=== PATIENT | female | born 1985 | race Caucasian/White ===

== ENCOUNTER 2021-03-29 16:15 | Emergency (ER) | payer MEDICAID, SELFPAY ==
[~2021-03-29] VITALS: Ht 142.2 cm; Wt 65.5 kg
[~2021-03-29 16:15] MED LIST: ACET-8386 PO; CIPR500T4 PO; DOCU-299 PO
[2021-03-29 16:16] VITALS: BP 112/56
[2021-03-29] MEDS ORDERED: KETOROLAC 60 MG/2 ML VIAL IM ONE (17:15)
[2021-03-29] MEDS ORDERED: IBUP-2213 PO (18:14)
[2021-03-29] MEDS ORDERED: CIPR500T4 PO (18:14)
[2021-03-30] MEDS ORDERED: CEPH-588 PO (05:31)
[2021-03-30] MEDS ORDERED: ACET-10509 PO (05:31)
[2021-03-30] MEDS ORDERED: NAPR-54 PO (05:31)
== END 2021-03-29 18:20 | disposition home or self-care (01) ==
LOC: MED 16:15
DX: N39.0 Urinary tract infection, site not specified (principal); Z90.49 Acquired absence of other specified parts of digestive tract; Z79.899 Other long term (current) drug therapy; Z79.2 Long term (current) use of antibiotics; Z79.891 Long term (current) use of opiate analgesic
CPT/HCPCS: 81002; 81025; 96372; 99283; J1885

== ENCOUNTER 2021-03-30 01:35 | Emergency (ER) | payer MEDICAID ==
[~2021-03-30] VITALS: Ht 160 cm; Wt 65.3 kg
[~2021-03-30 01:35] MED LIST changes: +IBUP-2213 PO
[2021-03-30 01:45] VITALS: BP 118/69
--- NOTE | 2021-03-30 02:36 | NUR ---
35 Y/O FEMALE PRESENTED TO ED WITH C/O OF CHILL. PT STATED SHE WAS RECNTLY HERE IN THE ED EARLIER THIS AFTERNOON AND RETURNED DUE TO CHILLS. AAOX4. DENIES PAIN. +FEVER OF 100.6. +HEADACHE. DENIES PMH NKA
[2021-03-30] MEDS ORDERED: ACETAMINOPHEN EXTRA STRENGTH 500 MG TAB PO ONE (02:45)
--- NOTE | 2021-03-30 04:23 | NUR ---
PT AMBULATAED TO BATHROOM.
[2021-03-30 04:33] LABS: BILIRUBIN,URINE NEGATIVE (NEGATIVE); BLOOD, URINE 1+ (NEGATIVE); LEUKOCYTE ESTERASE ,URINE 2+ (NEGATIVE); NITRITE, URINE POSITIVE (NEGATIVE); UGLUCOSE NEGATIVE (NEGATIVE)
[2021-03-30 04:50] LABS: APPEARANCE,URINE HAZY (CLEAR); COLOR,URINE YELLOW (YELLOW)
[2021-03-30 04:55] LABS: RBC,URINE 0-5 /HPF (0-5); WBC,URINE TOO MANY TO COUNT /HPF (0-5)
[2021-03-30] MEDS ORDERED: cefTRIAXone 1,000 MG in LIDOCAINE MPF 1% 2.1 ML IM ONE (05:25)
[2021-03-30] MEDS ORDERED: NAPR-54 PO (05:31)
[2021-03-30] MEDS ORDERED: CEPH-588 PO (05:31)
[2021-03-30] MEDS ORDERED: ACET-10509 PO (05:31)
[2021-03-30] MEDS ORDERED: cefTRIAXone 1,000 MG VIAL ONE ×2 (05:43→05:46)
[2021-03-30] MEDS ORDERED: LIDOCAINE MPF 1% 0 ML ONE (05:44)
[2021-03-30] MEDS ORDERED: LIDOCAINE MPF 1% 5 ML ONE (05:47)
[2021-03-30 05:58] VITALS: BP 116/57
--- NOTE | 2021-03-30 05:58 | NUR ---
Patient discharged with v/s stable. Written and verbal after care instructions given and explained. Patient alert, oriented and verbalized understanding of instructions. Ambulatory with steady gait. All questions addressed prior to discharge. ID band removed. Patient advised to follow up with PMD. Rx of ACETAMINOPHEN, CEPHALEXIN, AND NAPROXEN given. Patient educated on indication of medication including possible reaction and side effects. Opportunity to ask questions provided and answered.
== END 2021-03-30 05:58 | disposition home or self-care (01) ==
LOC: MED 01:35
DX: N39.0 Urinary tract infection, site not specified (principal); R50.9 Fever, unspecified
CPT/HCPCS: 81001; 81025; 87086; 96372; 99283; J0696; J2001

== ENCOUNTER 2021-08-01 20:01 | Emergency (ER) | payer MEDICAID ==
[~2021-08-01] VITALS: Ht 139.7 cm; Wt 58.1 kg
[~2021-08-01 20:01] MED LIST changes: +ACET-10509 PO; +CEPH-588 PO; +NAPR-54 PO
[2021-08-01 20:37] VITALS: BP 155/107
--- NOTE | 2021-08-01 20:44 | NUR ---
TO BR FOR UA THEN TO LOBBY FOLLOWING TRIAGE
--- NOTE | 2021-08-01 21:44 | NUR ---
TO BED 12 FROM LOBBY
--- NOTE | 2021-08-01 22:03 | NUR ---
Dr. Carpenter examining patient.
[2021-08-01] MEDS ORDERED: NITR100C7 PO (22:07)
[2021-08-01] MEDS ORDERED: PHEN-1877 PO (22:07)
--- NOTE | 2021-08-01 22:11 | NUR ---
Patient discharged BY DR. TURNER. Written and verbal after care instructions given and explained. Patient alert, oriented and verbalized understanding of instructions. Ambulatory with steady gait. All questions addressed prior to discharge. ID band removed. Patient advised to follow up with PMD. Rx of MACROBID AND PYRIDIUM given. Patient educated on indication of medication including possible reaction and side effects. Opportunity to ask questions provided and answered.
== END 2021-08-01 22:11 | disposition home or self-care (01) ==
LOC: MED 20:01
DX: N39.0 Urinary tract infection, site not specified (principal); Z79.899 Other long term (current) drug therapy; Z90.49 Acquired absence of other specified parts of digestive tract; Z98.890 Other specified postprocedural states
CPT/HCPCS: 81002; 81025; 99283

== ENCOUNTER 2022-02-14 16:32 | Emergency (ER) | payer MEDICAID ==
[~2022-02-14] VITALS: Ht 154.9 cm; Wt 65.8 kg
[~2022-02-14 16:32] MED LIST changes: +NITR100C7 PO; +PHEN-1877 PO
[2022-02-14 16:47] VITALS: BP 131/80
--- NOTE | 2022-02-14 16:54 | NUR ---
called [place] [facility] dispatch states will make a call for officer to file a report.
--- NOTE | 2022-02-14 17:45 | NUR ---
[facility] WITH PT FOR INTERVIEW AND REPORT
[2022-02-14] MEDS ORDERED: KETOROLAC 30 MG/ML VIAL IM ONE (18:30)
[2022-02-14] MEDS ORDERED: NAPR-1704 PO (19:57)
[2022-02-14] MEDS ORDERED: TRAM50TA3 PO (19:57)
[2022-02-14 20:31] VITALS: BP 131/80
== END 2022-02-14 20:31 | disposition home or self-care (01) ==
LOC: MED 16:32
DX: R10.30 Lower abdominal pain, unspecified (principal); Z79.899 Other long term (current) drug therapy; Y04.2XXA Assault by strike against or bumped into by another person, initial encounter; Y93.89 Activity, other specified; Y92.89 Other specified places as the place of occurrence of the external cause; Y99.8 Other external cause status
CPT/HCPCS: 74022; 81025; 96372; 99283; J1885

== ENCOUNTER 2022-04-17 00:51 | Emergency (ER) | payer MEDICAID ==
[~2022-04-17] VITALS: Ht 134.6 cm; Wt 72.6 kg
[~2022-04-17 00:51] MED LIST changes: -ACET-8386 PO; +ACET-8905 PO; +NAPR-1704 PO; +TRAM50TA3 PO
[2022-04-17 01:01] VITALS: BP 139/89
--- NOTE | 2022-04-17 01:09 | NUR ---
PT TAKEN TO BED 12
--- NOTE | 2022-04-17 01:19 | NUR ---
36YR OLD FEMALE BIB SELF C/O LOWER ABD PAIN / HEAVY PERIOD. PT STATES THIS IS NEW FOR HER. DENIES POSSIBLE PREG. URINE PREG NEG. PT IS A&OX4. SKIN WARM AND DRY. 9/10 SHARP/ACHEY PAIN. DENIES FEVER V/D DENIES SOB OR CP. HOB ELEVATED SIDE RAILS UP X1. BED AT LOWEST POSITION. NKDA DENIES MED HX
[2022-04-17] MEDS ORDERED: KETOROLAC 15 MG/ML VIAL IM ONE (01:30)
--- NOTE | 2022-04-17 01:34 | NUR ---
URINE COLLECTED AND WALKED TO LAB
[2022-04-17 01:49] LABS: BILIRUBIN,URINE NEGATIVE (NEGATIVE); BLOOD, URINE 3+ (NEGATIVE); COLOR,URINE YELLOW (YELLOW); LEUKOCYTE ESTERASE ,URINE NEGATIVE (NEGATIVE); NITRITE, URINE POSITIVE (NEGATIVE); UGLUCOSE NEGATIVE (NEGATIVE)
[2022-04-17 01:51] LABS: HEMOGLOBIN 8.2 g/dL (12.0-16.0); MEAN CORPUSCULAR HEMOGLOBIN 19 pg (27-31); MEAN CORPUSCULAR HGB CONC 30 g/dL (33-37); MEAN CORPUSCULAR VOLUME 63.5 fL (80-94); PLATELET COUNT (AUTO) 347 K/uL (140-450); RED BLOOD CELL COUNT(AUTO) 4.25 MIL/uL (4.20-5.40); WHITE BLOOD COUNT (AUTO) 7.2 K/uL (4.8-10.8)
--- NOTE | 2022-04-17 02:00 | NUR ---
PATIENT MEDICATED PER ORDERS
[2022-04-17 02:04] LABS: APPEARANCE,URINE SLIGHTLY HAZY (CLEAR)
[2022-04-17 02:06] LABS: WBC,URINE 0-5 /HPF (0-5)
[2022-04-17 02:07] LABS: ANION GAP 12.2 (8-16); CARBON DIOXIDE 31.6 mmol/L (21-32); CREATININE 0.7 mg/dL (0.6-1.3); TOTAL BILIRUBIN 0.2 mg/dL (0.0-1.0)
--- NOTE | 2022-04-17 02:10 | NUR ---
PATIENT STATED THAT IT WAS OKAY TO UPDATE SIGNIFICANT OTHER.
--- NOTE | 2022-04-17 02:10 | NUR ---
SPOKE TO SIGNIFICANT OTHER AND UPDATED ON PATIENTS STATUS.
[2022-04-17 02:13] LABS: POTASSIUM 2.8 mmol/L (3.5-5.1)
[2022-04-17] MEDS ORDERED: POTASSIUM CHLORIDE 10 MEQ TABER PO ONE ×2 (02:20)
[2022-04-17 02:25] LABS: EOSINOPHILS % (MANUAL) 2 % (0-4); LYMPHOCYTES % (MANUAL) 61 % (20-46); MONOCYTES % (MANUAL) 5 % (5-12)
--- NOTE | 2022-04-17 02:57 | NUR ---
ADALGISA RICH ASSESSING PATIENT
--- NOTE | 2022-04-17 03:12 | NUR ---
Ultrasound at bedside.
[2022-04-17 04:16] VITALS: BP 139/95
[2022-04-17] MEDS ORDERED: CEPH-588 PO (04:48)
[2022-04-17] MEDS ORDERED: IBUP-2213 PO (04:50)
--- NOTE | 2022-04-17 04:57 | NUR ---
Patient discharged with v/s stable. Written and verbal after care instructions given and explained. Patient alert, oriented and verbalized understanding of instructions. Ambulatory with steady gait. All questions addressed prior to discharge. ID band removed. Patient advised to follow up with PMD. Rx of IBUPROFEN, AND REFLEX given. Patient educated on indication of medication including possible reaction and side effects. Opportunity to ask questions provided and answered.
== END 2022-04-17 04:57 | disposition home or self-care (01) ==
LOC: MED 00:51
DX: R10.30 Lower abdominal pain, unspecified (principal); N39.0 Urinary tract infection, site not specified; E87.6 Hypokalemia; D64.9 Anemia, unspecified; Z79.899 Other long term (current) drug therapy
CPT/HCPCS: 36415; 76705; 76830; 80053; 81001; 81025; 83690; 85025; 87086; 96372; 99284; J1885; Q0092

== ENCOUNTER 2022-05-01 23:23 | Emergency (ER) | payer MEDICAID ==
[~2022-05-01] VITALS: Ht 147.3 cm; Wt 68.0 kg
[2022-05-01 23:25] VITALS: BP 137/69
--- NOTE | 2022-05-01 23:28 | NUR ---
PT HUBER ROMERO
--- NOTE | 2022-05-02 00:19 | NUR ---
PT TO 2
--- NOTE | 2022-05-02 00:25 | NUR ---
PT IS AWAKE AND ALERT, AMBULATORY, COMPLANING ABOUT THE PAIN. 12/09
--- NOTE | 2022-05-02 00:27 | NUR ---
Dr. Gonsalez examining patient.
[2022-05-02] MEDS ORDERED: DICYCLOMINE HCL LIQUID 20 MG, ALUMINUM HYD/MAG/SIMETHICONE 30 ML, LIDOCAINE VISCOUS 2% ... PO ONE ×3 (00:30)
--- NOTE | 2022-05-02 00:35 | NUR ---
Urine sample collected and sent to lab.
[2022-05-02] MEDS ORDERED: ALUMINUM HYD/MAG/SIMETHICONE 30 ML UDC ONE (00:37)
[2022-05-02] MEDS ORDERED: DICYCLOMINE HCL LIQUID 10 MG/5 ML UDC ONE (00:37)
[2022-05-02 00:53] LABS: APPEARANCE,URINE HAZY (CLEAR); BILIRUBIN,URINE NEGATIVE (NEGATIVE); BLOOD, URINE NEGATIVE (NEGATIVE); COLOR,URINE YELLOW (YELLOW); LEUKOCYTE ESTERASE ,URINE NEGATIVE (NEGATIVE); NITRITE, URINE NEGATIVE (NEGATIVE); UGLUCOSE NEGATIVE (NEGATIVE)
[2022-05-02 00:55] LABS: HEMATOCRIT 28.1 % (36-48); HEMOGLOBIN 8.5 g/dL (12.0-16.0); MEAN CORPUSCULAR HEMOGLOBIN 19 pg (27-31); MEAN CORPUSCULAR HGB CONC 30 g/dL (33-37); MEAN CORPUSCULAR VOLUME 63.5 fL (80-94); PLATELET COUNT (AUTO) 468 K/uL (140-450); RED BLOOD CELL COUNT(AUTO) 4.43 MIL/uL (4.20-5.40); RED CELL DISTRIBUTION WIDTH 18.1 % (11.6-13.7); WHITE BLOOD COUNT (AUTO) 9.7 K/uL (4.8-10.8)
[2022-05-02 01:04] LABS: ALBUMIN 3.4 g/dL (3.4-5.0); ANION GAP 11.4 (8-16); CREATININE 0.7 mg/dL (0.6-1.3); POTASSIUM 3.4 mmol/L (3.5-5.1); TOTAL BILIRUBIN 0.5 mg/dL (0.0-1.0)
[2022-05-02 01:13] LABS: LYMPHOCYTES % (MANUAL) 8 % (20-46); MONOCYTES % (MANUAL) 1 % (5-12)
[2022-05-02 01:17] LABS: RBC,URINE 0-5 /HPF (0-5); WBC,URINE 0-5 /HPF (0-5)
[2022-05-02] MEDS ORDERED: MAG-27 PO (01:40)
[2022-05-02 02:07] VITALS: BP 137/69
--- NOTE | 2022-05-02 02:09 | NUR ---
Patient discharged with v/s stable. Written and verbal after care instructions given and explained. Patient verbalized understanding. Ambulatory with steady gait. All questions addressed prior to discharge. Advised to follow up with PMD. PT LEFT WITH HIS BELONGINGS
== END 2022-05-02 02:00 | disposition home or self-care (01) ==
LOC: MED 23:23
DX: R10.10 Upper abdominal pain, unspecified (principal); R11.2 Nausea with vomiting, unspecified; Z90.49 Acquired absence of other specified parts of digestive tract; Z98.890 Other specified postprocedural states; Z79.899 Other long term (current) drug therapy
CPT/HCPCS: 36415; 80053; 81001; 81025; 83690; 85025; 87086; 99283

== ENCOUNTER 2023-02-07 19:49 | Emergency (ER) | payer MEDICAID ==
[~2023-02-07] VITALS: Ht 137.2 cm; Wt 58.1 kg
[~2023-02-07 19:49] MED LIST changes: +MAG-27 PO
[2023-02-07 20:09] VITALS: BP 161/94; PULSE 89; RESP 18; TEMP 98.8; O2SAT 100
== END 2023-02-07 22:15 | disposition left against medical advice (07) ==
LOC: MED 19:49
DX: M79.10 Myalgia, unspecified site (principal); Z53.21 Procedure and treatment not carried out due to patient leaving prior to being seen by health care provider
CPT/HCPCS: 81025; 99281